=== PATIENT | male | born 1990 | race Caucasian/White ===

== ENCOUNTER 2023-01-17 06:45 | Emergency (ER) | payer MEDICAID ==
[~2023-01-17] VITALS: Ht 170.2 cm; Wt 68.0 kg
[2023-01-17 06:49] VITALS: BP_SYST 149
[2023-01-17 07:10] VITALS: BP_SYST 149
== END 2023-01-17 07:10 ==
LOC: SED 06:45
DX: Z02.89 Encounter for other administrative examinations (principal); S50.311A Abrasion of right elbow, initial encounter; Z79.899 Other long term (current) drug therapy; X58.XXXA Exposure to other specified factors, initial encounter; Y93.89 Activity, other specified; Y92.89 Other specified places as the place of occurrence of the external cause; Y99.8 Other external cause status
CPT/HCPCS: 99283